=== PATIENT | male | born 1975 | race Caucasian/White ===

== ENCOUNTER 2023-08-26 00:21 | Inpatient (IN) | payer MEDICAID ==
[2023-08-26] VITALS (15 sets, daily range): BP systolic 95–133; PULSE 75–92; RESP 16–20; TEMP 97.5–98.1; O2SAT 90–100
[~2023-08-26] VITALS: Ht 172.7 cm; Wt 113.9 kg
[2023-08-26 01:29] LABS: ALBUMIN 2.6 g/dL (3.4-4.8); CALCIUM 7.7 mg/dL (8.4-11.0); CREATININE 0.75 mg/dL (0.55-1.30); POTASSIUM 4.1 mmol/L (3.5-5.1); TOTAL BILIRUBIN 3.4 mg/dL (0.0-1.0); TOTAL PROTEIN, SERUM 5.6 g/dL (6.4-8.3)
[2023-08-26 01:50] LABS: BASOPHILS # (AUTO) 0.1 K/uL (0.0-0.2); BASOPHILS % (AUTO) 0.8 % (0.0-2.0); EOSINOPHILS # (AUTO) 0.1 K/uL (0.0-0.4); EOSINOPHILS % (AUTO) 1.2 % (0.0-4.0); HEMATOCRIT 29.7 % (36-54); HEMOGLOBIN 10.9 g/dL (14.0-18.0); LYMPHOCYTES # (AUTO) 0.6 K/uL (1.0-5.5); LYMPHOCYTES % (AUTO) 8.1 % (20.5-51.5); MEAN CORPUSCULAR HEMOGLOBIN 35 pg (27-31); MEAN CORPUSCULAR HGB CONC 37 % (32-36); MEAN CORPUSCULAR VOLUME 95 fL (79.0-98.0); MONOCYTES # (AUTO) 1.6 K/uL (0.0-1.0); MONOCYTES % (AUTO) 21.5 % (1.7-9.3); NEUTROPHILS % (AUTO) 68.4 % (40.0-70.0); RED BLOOD CELL COUNT(AUTO) 3.13 MIL/uL (4.2-6.2); RED CELL DISTRIBUTION WIDTH 16.8 % (9.0-15.0); WHITE BLOOD COUNT (AUTO) 7.3 K/uL (4.8-10.8)
[2023-08-26 01:57] LABS: PLATELET COUNT (AUTO) 46 K/uL (130-430)
[2023-08-26] MEDS ORDERED: NS 500 ML IV ONE ×2 (02:00→05:00)
[2023-08-26 02:20] LABS: THYROID STIMULATING HORMONE 2.3 uIu/mL (0.34-4.82); URIC ACID 7.5 mg/dL (2.4-7.0)
[2023-08-26 02:38] LABS: BILIRUBIN,URINE NEGATIVE (NEGATIVE); BLOOD, URINE 3+ (NEGATIVE); CLARITY/URINE Clear (CLEAR); COLOR,URINE YELLOW (YELLOW); GLUCOSE,URINE NEGATIVE (NEGATIVE); KETONES,URINE NEGATIVE (NEGATIVE); LEUKOCYTE ESTERASE ,URINE 1+ (NEGATIVE); NITRITE, URINE NEGATIVE (NEGATIVE); PH,URINE 6.5 (5.0-8.0); PROTEIN URINE NEGATIVE (NEGATIVE)
[2023-08-26] MEDS ORDERED: MAGNESIUM SULFATE 50 ML IV ONE (03:00)
[2023-08-26 03:15] LABS: BACTERIA,URINE None Seen /HPF (None Seen)
[2023-08-26 04:24] LABS: CALCIUM 7.4 mg/dL (8.4-11.0); CREATININE 0.68 mg/dL (0.55-1.30)
[2023-08-26] MEDS ORDERED: FUROSEMIDE 40 MG/4 ML VIAL IVP ONE (05:00)
[2023-08-26] MEDS ORDERED: RIFA550T5 PO ×2 (06:05→06:11)
[2023-08-26] MEDS ORDERED: FLUC100T41 PO (06:05)
[2023-08-26] MEDS ORDERED: FURO40TA5 PO (06:05)
[2023-08-26] MEDS ORDERED: LEVE1000 PO (06:05)
[2023-08-26] MEDS ORDERED: LACO100T4 PO (06:05)
[2023-08-26] MEDS ORDERED: QUET25TA36 PO (06:05)
[2023-08-26] MEDS ORDERED: MIDO5TAB4 PO (06:11)
[2023-08-26] MEDS ORDERED: PRO40 PO (06:11)
[2023-08-26] MEDS ORDERED: SPIR50TA5 PO (06:11)
[2023-08-26] MEDS ORDERED: THIA50TA10 PO (06:11)
[2023-08-26] MEDS ORDERED: PROP10TA10 PO (06:11)
[2023-08-26] MEDS ORDERED: ONDA-8 TL (06:11)
[2023-08-26] MEDS ORDERED: MUPIROCIN 2% TOPICAL OINTMENT 22 GM NS PRN (07:45)
[2023-08-26] MEDS ORDERED: MAGNESIUM SULFATE 50 ML IV PRN (07:45)
[2023-08-26] MEDS ORDERED: POTASSIUM CHLORIDE 20 MEQ TAB.PRT.SR PO PRN (07:45)
[2023-08-26] MEDS ORDERED: MORPHINE 2 MG/ML INJ. SYRINGE IVP PRN ×2 (07:45)
[2023-08-26] MEDS ORDERED: DOCUSATE SODIUM 100 MG CAPSULE PO PRN (07:45)
[2023-08-26] MEDS ORDERED: ONDANSETRON HCL 4 MG/2 ML VIAL IVP PRN (07:45)
[2023-08-26] MEDS ORDERED: LORazepam 2 MG/ML VIAL IVP PRN (07:45)
[2023-08-26] MEDS ORDERED: ACETAMINOPHEN 325 MG TABLET PO PRN ×2 (07:45)
[2023-08-26] MEDS ORDERED: DEXTROSE 50% JECT 50 ML DISP.SYRIN IVP PRN (07:45)
[2023-08-26] MEDS ORDERED: NALOXONE HCL 0.4 MG/ML AMP (NARCAN) IVP PRN ×2 (07:45)
[2023-08-26] MEDS ORDERED: INSULIN Lispro 100 UNITS/ML, 3 ML VIAL (humaLOG) ONE ×2 (07:52→08:00)
[2023-08-26] MEDS: INSULIN LISPRO SLIDING SCALE 100 UNITS/ML, 3 ML VIAL (humaLOG) SUBCUT PRN (07:57)
[2023-08-26] MEDS: NEPHROVITE, (FOLIC ACID/VITAMIN B COMP W-C 1 TAB) PO SCH (09:50)
[2023-08-26] MEDS ORDERED: levETIRAcetam 500 MG TABLET PO ONE (10:00)
[2023-08-26] MEDS ORDERED: SODIUM CHLORIDE 3% *HI-ALERT* 250 ML IV ONE (10:00)
[2023-08-26] MEDS ORDERED: RIFAXIMIN 550 MG TABLET PO ONE (10:15)
[2023-08-26] MEDS ORDERED: LACOSAMIDE 100 MG TABLET PO ONE (10:15)
[2023-08-26 14:40] LABS: CALCIUM 7.6 mg/dL (8.4-11.0); CREATININE 0.61 mg/dL (0.55-1.30); POTASSIUM 4.3 mmol/L (3.5-5.1)
[2023-08-26] MEDS: MIDODRINE HCL 5 MG TABLET (PROAMATINE) PO SCH ×2 (14:49→21:24)
[2023-08-26] MEDS ORDERED: NOREPINEPHRINE BITARTRATE 4 MG in D5W 246 ML IV PRN (16:30)
[2023-08-26 16:43] LABS: INR 1.4 (0.80-1.20); PROTHROMBIN TIME 14.5 SECS (9.5-12.5)
[2023-08-26 17:28] LABS: ALBUMIN 2.6 g/dL (3.4-4.8); CALCIUM 7.7 mg/dL (8.4-11.0); CREATININE 0.61 mg/dL (0.55-1.30); POTASSIUM 4.1 mmol/L (3.5-5.1); TOTAL BILIRUBIN 4.1 mg/dL (0.0-1.0); TOTAL PROTEIN, SERUM 5.6 g/dL (6.4-8.3)
[2023-08-26] MEDS: MEROPENEM 500 MG in NS 50 ML IV SCH (18:08)
[2023-08-26 20:35] LABS: ALBUMIN 2.5 g/dL (3.4-4.8); CALCIUM 7.5 mg/dL (8.4-11.0); CREATININE 0.79 mg/dL (0.55-1.30); POTASSIUM 4.2 mmol/L (3.5-5.1); TOTAL BILIRUBIN 3.9 mg/dL (0.0-1.0); TOTAL PROTEIN, SERUM 5.6 g/dL (6.4-8.3)
[2023-08-26] MEDS ORDERED: QUEtiapine FUMARATE 25 MG TABLET PO SCH (21:00)
[2023-08-26] MEDS: LACTULOSE 20 GM/30 ML UDC PO SCH (21:23)
[2023-08-26] MEDS: levETIRAcetam 500 MG TABLET PO SCH (21:24)
[2023-08-26] MEDS: RIFAXIMIN 550 MG TABLET PO SCH (21:24)
[2023-08-27] VITALS (13 sets, daily range): BP systolic 101–133; PULSE 80–94; RESP 17–32; TEMP 97.8–98.8; O2SAT 92–96
[2023-08-27] MEDS: MEROPENEM 500 MG in NS 50 ML IV SCH ×3 (02:00→17:54)
[2023-08-27 06:05] LABS: BASOPHILS % (AUTO) 0.6 % (0.0-2.0); EOSINOPHILS # (AUTO) 0.1 K/uL (0.0-0.4); EOSINOPHILS % (AUTO) 1.4 % (0.0-4.0); HEMOGLOBIN 10.6 g/dL (14.0-18.0); LYMPHOCYTES # (AUTO) 0.6 K/uL (1.0-5.5); LYMPHOCYTES % (AUTO) 10.6 % (20.5-51.5); MEAN CORPUSCULAR HEMOGLOBIN 34 pg (27-31); MEAN CORPUSCULAR HGB CONC 35 % (32-36); MEAN CORPUSCULAR VOLUME 97 fL (79.0-98.0); MONOCYTES # (AUTO) 1.4 K/uL (0.0-1.0); MONOCYTES % (AUTO) 22.9 % (1.7-9.3); NEUTROPHILS # (AUTO) 3.8 K/uL (1.8-7.7); NEUTROPHILS % (AUTO) 64.5 % (40.0-70.0); RED BLOOD CELL COUNT(AUTO) 3.08 MIL/uL (4.2-6.2); RED CELL DISTRIBUTION WIDTH 17.4 % (9.0-15.0); WHITE BLOOD COUNT (AUTO) 5.9 K/uL (4.8-10.8)
[2023-08-27 07:10] LABS: CALCIUM 7.9 mg/dL (8.4-11.0); CREATININE 0.69 mg/dL (0.55-1.30)
[2023-08-27] MEDS: RIFAXIMIN 550 MG TABLET PO SCH ×2 (08:52→21:25)
[2023-08-27] MEDS: MIDODRINE HCL 5 MG TABLET (PROAMATINE) PO SCH ×3 (08:52→21:25)
[2023-08-27] MEDS: levETIRAcetam 500 MG TABLET PO SCH ×2 (08:52→21:25)
[2023-08-27] MEDS: NEPHROVITE, (FOLIC ACID/VITAMIN B COMP W-C 1 TAB) PO SCH (08:52)
[2023-08-27] MEDS: LACOSAMIDE 100 MG TABLET PO SCH (08:53)
[2023-08-27] MEDS: LACTULOSE 20 GM/30 ML UDC PO SCH ×2 (09:00→21:25)
[2023-08-27] MEDS ORDERED: PROPRANOLOL HCL 10 MG TABLET (INDERAL) PO SCH (09:00)
[2023-08-27] MEDS ORDERED: SPIRONOLACTONE 50 MG TABLET (ALDACTONE) PO SCH (09:00)
[2023-08-27] MEDS: INSULIN LISPRO SLIDING SCALE 100 UNITS/ML, 3 ML VIAL (humaLOG) SUBCUT PRN ×2 (12:17→21:35)
[2023-08-27 12:39] LABS: PLATELET COUNT (AUTO) 45 K/uL (130-430)
[2023-08-28] MEDS: MEROPENEM 500 MG in NS 50 ML IV SCH (01:35)
[2023-08-28 02:11] VITALS: BP_SYST 113; PULSE 100; RESP 19; TEMP 98.6; O2SAT 98
[2023-08-28 07:45] LABS: ALBUMIN 2.6 g/dL (3.4-4.8); BILIRUBIN,DIRECT 2.4 mg/dL (0.0-0.3); CALCIUM 7.9 mg/dL (8.4-11.0); CREATININE 0.61 mg/dL (0.55-1.30); POTASSIUM 4.3 mmol/L (3.5-5.1); TOTAL BILIRUBIN 4.6 mg/dL (0.0-1.0); TOTAL PROTEIN, SERUM 5.6 g/dL (6.4-8.3)
[2023-08-28 07:55] LABS: BASOPHILS % (AUTO) 0.3 % (0.0-2.0); EOSINOPHILS # (AUTO) 0.1 K/uL (0.0-0.4); HEMATOCRIT 29.7 % (36-54); HEMOGLOBIN 10.5 g/dL (14.0-18.0); LYMPHOCYTES # (AUTO) 0.6 K/uL (1.0-5.5); LYMPHOCYTES % (AUTO) 10.7 % (20.5-51.5); MEAN CORPUSCULAR HEMOGLOBIN 35 pg (27-31); MEAN CORPUSCULAR HGB CONC 35 % (32-36); MEAN CORPUSCULAR VOLUME 98 fL (79.0-98.0); MONOCYTES # (AUTO) 1.2 K/uL (0.0-1.0); MONOCYTES % (AUTO) 22.1 % (1.7-9.3); NEUTROPHILS # (AUTO) 3.6 K/uL (1.8-7.7); RED BLOOD CELL COUNT(AUTO) 3.03 MIL/uL (4.2-6.2); RED CELL DISTRIBUTION WIDTH 16.7 % (9.0-15.0); WHITE BLOOD COUNT (AUTO) 5.5 K/uL (4.8-10.8)
[2023-08-28 08:26] VITALS: BP_SYST 114; PULSE 105; RESP 20; TEMP 97.4; O2SAT 95
[2023-08-28 08:47] LABS: PLATELET COUNT (AUTO) 43 K/uL (130-430)
[2023-08-28] MEDS: levETIRAcetam 500 MG TABLET PO SCH (09:16)
[2023-08-28] MEDS: LACTULOSE 20 GM/30 ML UDC PO SCH (09:16)
[2023-08-28] MEDS: NEPHROVITE, (FOLIC ACID/VITAMIN B COMP W-C 1 TAB) PO SCH (09:17)
[2023-08-28] MEDS: RIFAXIMIN 550 MG TABLET PO SCH (09:17)
[2023-08-28] MEDS: MIDODRINE HCL 5 MG TABLET (PROAMATINE) PO SCH (09:19)
[2023-08-28] MEDS ORDERED: levoFLOXacin 500 MG TABLET PO SCH (10:00)
[2023-08-28] MEDS: LACOSAMIDE 100 MG TABLET PO SCH (10:45)
[2023-08-28 10:49] LABS: NEUTROPHILS % (AUTO) 65.9 % (40.0-70.0)
[2023-08-28] MEDS: INSULIN LISPRO SLIDING SCALE 100 UNITS/ML, 3 ML VIAL (humaLOG) SUBCUT PRN (12:30)
[2023-08-28 14:56] VITALS: BP_SYST 116; PULSE 88; RESP 18; TEMP 97.8; O2SAT 95
== END 2023-08-29 17:35 | DRG 426 ==
LOC: SED 00:21 → STU 05:57 → SIC 13:38 → STU 08-27 16:46
PROVIDERS: ADMIT Family Medicine; ATTEND Family Medicine
PROC: 02HV33Z Insertion of Infusion Device into Superior Vena Cava, Percutaneous Approach (ICD-10-PCS; principal; 2023-08-27)
PROC: B548ZZA Ultrasonography of Superior Vena Cava, Guidance (ICD-10-PCS; 2023-08-27)
DX: E87.1 Hypo-osmolality and hyponatremia (principal); D61.818 Other pancytopenia; K76.82 Hepatic encephalopathy; J18.9 Pneumonia, unspecified organism; K76.6 Portal hypertension; E44.0 Moderate protein-calorie malnutrition; K70.30 Alcoholic cirrhosis of liver without ascites; Z20.822 Contact with and (suspected) exposure to COVID-19; J45.909 Unspecified asthma, uncomplicated; G40.909 Epilepsy, unspecified, not intractable, without status epilepticus; Z87.01 Personal history of pneumonia (recurrent); Z88.0 Allergy status to penicillin; Z79.899 Other long term (current) drug therapy; Z68.38 Body mass index [BMI] 38.0-38.9, adult
CPT/HCPCS: 36415; 70450-TC; 71045; 76376; 76700-TC; 76705; 80048; 80053; 80076; 81000; 82140; 82962; 83735; 83935; 84302; 84443; 84540; 84550; 84560; 85025; 85610-TC; 85730-TC; 87040; 87081; 96361; 96365; 96366; 96375; 99291; G0378; J1940; J2185; J3475; J3490; J7060

== ENCOUNTER 2023-09-10 19:30 | Inpatient (IN) | payer MEDICAID ==
[~2023-09-10] VITALS: Ht 175.3 cm; Wt 104.3 kg
[~2023-09-10 19:30] MED LIST: FLUC100T41 PO; FURO40TA5 PO; LACO100T4 PO; LEVE1000 PO; MIDO5TAB4 PO; ONDA-8 TL; PRO40 PO; PROP10TA10 PO; QUET25TA36 PO; RIFA550T5 PO; SPIR50TA5 PO; THIA50TA10 PO
[2023-09-10 19:37] VITALS: BP_SYST 92; PULSE 88; RESP 20; TEMP 98.1; O2SAT 97
[2023-09-10 21:02] LABS: BASOPHILS # (AUTO) 0.1 K/uL (0.0-0.2); BASOPHILS % (AUTO) 0.3 % (0.0-2.0); EOSINOPHILS # (AUTO) 0.1 K/uL (0.0-0.4); EOSINOPHILS % (AUTO) 0.4 % (0.0-4.0); HEMATOCRIT 35.7 % (36-54); HEMOGLOBIN 12.2 g/dL (14.0-18.0); LYMPHOCYTES # (AUTO) 0.9 K/uL (1.0-5.5); LYMPHOCYTES % (AUTO) 4.5 % (20.5-51.5); MEAN CORPUSCULAR HEMOGLOBIN 33 pg (27-31); MEAN CORPUSCULAR HGB CONC 34 % (32-36); MEAN CORPUSCULAR VOLUME 97 fL (79.0-98.0); MONOCYTES # (AUTO) 1.8 K/uL (0.0-1.0); MONOCYTES % (AUTO) 9.1 % (1.7-9.3); NEUTROPHILS % (AUTO) 85.7 % (40.0-70.0); RED BLOOD CELL COUNT(AUTO) 3.68 MIL/uL (4.2-6.2); WHITE BLOOD COUNT (AUTO) 19.8 K/uL (4.8-10.8)
[2023-09-10 21:13] LABS: PLATELET COUNT (AUTO) 60 K/uL (130-430)
[2023-09-10 21:15] LABS: INR 1.7 (0.80-1.20); PROTHROMBIN TIME 16.8 SECS (9.5-12.5)
[2023-09-10 21:16] LABS: ANION GAP 9 (5-15); CALCIUM 8.6 mg/dL (8.4-11.0); CARBON DIOXIDE 28 mmol/L (23-29); CHLORIDE 95 mmol/L (98-107); CREATININE 0.85 mg/dL (0.55-1.30); GFR AFRICAN AMERICAN 124 mL/min (>90); GLUCOSE 130 mg/dL (74-106); POTASSIUM 3.7 mmol/L (3.5-5.1); SODIUM SERUM 132 mmol/L (136-145); UREA NITROGEN, BLOOD 23 mg/dL (8-21)
[2023-09-10 21:21] LABS: ALANINE AMINOTRANSFERASE 11 U/L (12-78); ALBUMIN 2.6 g/dL (3.4-4.8); ASPARTATE AMINOTRANSFERASE 21 U/L (10-37); TOTAL BILIRUBIN 5.8 mg/dL (0.0-1.0); TOTAL PROTEIN, SERUM 5.8 g/dL (6.4-8.3)
[2023-09-10 21:27] LABS: GFR NON AFRICAN-AMERICAN 102 mL/min (>90)
[2023-09-10 21:38] LABS: BILIRUBIN,URINE 1+ (NEGATIVE); BLOOD, URINE NEGATIVE (NEGATIVE); CLARITY/URINE CLEAR (CLEAR); GLUCOSE,URINE NEGATIVE (NEGATIVE); KETONES,URINE NEGATIVE (NEGATIVE); LEUKOCYTE ESTERASE ,URINE TRACE (NEGATIVE); NITRITE, URINE NEGATIVE (NEGATIVE); PH,URINE 5.5 (5.0-8.0); PROTEIN URINE NEGATIVE (NEGATIVE)
[2023-09-10 21:44] LABS: COLOR,URINE AMBER (YELLOW)
[2023-09-10] MEDS ORDERED: ONDANSETRON HCL 4 MG/2 ML VIAL IVP ONE (21:45)
[2023-09-10 21:46] LABS: BACTERIA,URINE FEW /HPF (None Seen); RBC,URINE NONE SEEN /HPF (0-3)
[2023-09-10 21:47] LABS: MUCUS,URINE None Seen /LPF (None Seen)
[2023-09-10] MEDS ORDERED: cefTRIAXone 2 GM VIAL ONE (21:48)
[2023-09-10] MEDS ORDERED: LACTULOSE 20 GM/30 ML UDC ONE (21:57)
[2023-09-10] MEDS ORDERED: LACTULOSE 20 GM/30 ML UDC PO ONE (22:00)
[2023-09-10] MEDS: LR 1,000 ML IV SCH (23:42)
[2023-09-11 00:05] VITALS: BP_SYST 109; PULSE 87; RESP 19; TEMP 99
[2023-09-11] MEDS: LR 1,000 ML IV SCH (02:46)
[2023-09-11 08:37] VITALS: BP_SYST 109; PULSE 97; RESP 18; TEMP 96.8; O2SAT 99
[2023-09-11] MEDS ORDERED: THIAMINE HCL PO SCH (10:15)
[2023-09-11] MEDS ORDERED: ONDANSETRON 4 MG ODT TAB TL PRN (10:15)
[2023-09-11] MEDS ORDERED: PHYTONADIONE Non-Formulary 5 MG TABLET PO ONE (10:30)
[2023-09-11] MEDS ORDERED: LACOSAMIDE 100 MG TABLET PO ONE (11:00)
[2023-09-11] MEDS ORDERED: FLUCONAZOLE 100 MG TABLET (DIFLUCAN) PO ONE (11:00)
[2023-09-11] MEDS ORDERED: THIAMINE HCL 100 MG TABLET PO ONE (11:15)
[2023-09-11] MEDS ORDERED: levETIRAcetam 500 MG TABLET PO ONE (11:15)
[2023-09-11] MEDS ORDERED: MIDODRINE HCL 5 MG TABLET (PROAMATINE) PO ONE (11:15)
[2023-09-11] MEDS ORDERED: PANTOPRAZOLE SODIUM 40 MG TAB PO ONE (11:15)
[2023-09-11] MEDS ORDERED: SPIRONOLACTONE 50 MG TABLET (ALDACTONE) PO ONE (11:15)
[2023-09-11] MEDS ORDERED: PROPRANOLOL HCL 10 MG TABLET (INDERAL) PO ONE (11:15)
[2023-09-11] MEDS ORDERED: RIFAXIMIN 550 MG TABLET PO ONE (11:15)
[2023-09-11 11:30] VITALS: BP_SYST 105; PULSE 89; RESP 17; TEMP 97.9; O2SAT 100
[2023-09-11] MEDS: cefTRIAXone 1 GM in D5W 50 ML IV SCH (12:00)
[2023-09-11] MEDS ORDERED: PHYTONADIONE (Vitamin K) Oral Solution PO ONE (12:00)
[2023-09-11] MEDS: MIDODRINE HCL 5 MG TABLET (PROAMATINE) PO SCH ×2 (15:58→21:24)
[2023-09-11 17:02] VITALS: BP_SYST 108; PULSE 84; RESP 17; TEMP 98; O2SAT 100
[2023-09-11] MEDS ORDERED: VANCOMYCIN HCL ORAL SOLUTION 125 MG/5 ML, 150 ML PO ONE (18:00)
[2023-09-11] MEDS: QUEtiapine FUMARATE 25 MG TABLET PO SCH (18:28)
[2023-09-11 20:00] VITALS: BP_SYST 115; PULSE 88; RESP 16; TEMP 97; O2SAT 97
[2023-09-11] MEDS: LACOSAMIDE 100 MG TABLET PO SCH (21:00)
[2023-09-11] MEDS ORDERED: VANCOMYCIN HCL ORAL SOLUTION 125 MG/5 ML, 150 ML PO SCH (21:00)
[2023-09-11] MEDS: SPIRONOLACTONE 50 MG TABLET (ALDACTONE) PO SCH (21:25)
[2023-09-11] MEDS: PROPRANOLOL HCL 10 MG TABLET (INDERAL) PO SCH (21:25)
[2023-09-11] MEDS: levETIRAcetam 500 MG TABLET PO SCH (21:26)
[2023-09-11] MEDS: RIFAXIMIN 550 MG TABLET PO SCH (21:27)
[2023-09-11] MEDS: VANCOMYCIN HCL ORAL SOLUTION 125 MG/5 ML, 150 ML PO SCH (21:44)
[2023-09-12 00:24] VITALS: BP_SYST 102; PULSE 80; RESP 19; TEMP 96.3; O2SAT 98
[2023-09-12 05:49] LABS: BASOPHILS # (AUTO) 0.1 K/uL (0.0-0.2); BASOPHILS % (AUTO) 0.5 % (0.0-2.0); EOSINOPHILS # (AUTO) 0.2 K/uL (0.0-0.4); EOSINOPHILS % (AUTO) 1.3 % (0.0-4.0); HEMATOCRIT 36.9 % (36-54); HEMOGLOBIN 12.6 g/dL (14.0-18.0); LYMPHOCYTES % (AUTO) 8.4 % (20.5-51.5); MEAN CORPUSCULAR HEMOGLOBIN 33 pg (27-31); MEAN CORPUSCULAR HGB CONC 34 % (32-36); MEAN CORPUSCULAR VOLUME 97 fL (79.0-98.0); MONOCYTES # (AUTO) 1.5 K/uL (0.0-1.0); MONOCYTES % (AUTO) 12.6 % (1.7-9.3); NEUTROPHILS # (AUTO) 9.3 K/uL (1.8-7.7); NEUTROPHILS % (AUTO) 77.2 % (40.0-70.0); PLATELET COUNT (AUTO) 63 K/uL (130-430); RED BLOOD CELL COUNT(AUTO) 3.81 MIL/uL (4.2-6.2)
[2023-09-12 06:16] LABS: INR 1.6 (0.80-1.20); PROTHROMBIN TIME 16.3 SECS (9.5-12.5)
[2023-09-12 06:29] LABS: ALBUMIN 2.5 g/dL (3.4-4.8); CALCIUM 8.5 mg/dL (8.4-11.0); CREATININE 0.81 mg/dL (0.55-1.30); POTASSIUM 3.6 mmol/L (3.5-5.1); TOTAL BILIRUBIN 5.3 mg/dL (0.0-1.0); TOTAL PROTEIN, SERUM 5.6 g/dL (6.4-8.3)
[2023-09-12] MEDS: LR 1,000 ML IV SCH (07:10)
[2023-09-12 08:31] VITALS: BP_SYST 109; PULSE 73; RESP 18; TEMP 96.5; O2SAT 98
[2023-09-12] MEDS: SPIRONOLACTONE 50 MG TABLET (ALDACTONE) PO SCH ×2 (09:00→21:11)
[2023-09-12] MEDS: PROPRANOLOL HCL 10 MG TABLET (INDERAL) PO SCH ×2 (09:00→21:14)
[2023-09-12] MEDS: RIFAXIMIN 550 MG TABLET PO SCH ×2 (10:27→21:16)
[2023-09-12] MEDS: FLUCONAZOLE 100 MG TABLET (DIFLUCAN) PO SCH (10:27)
[2023-09-12] MEDS: LACOSAMIDE 100 MG TABLET PO SCH ×2 (10:28→21:12)
[2023-09-12] MEDS: PANTOPRAZOLE SODIUM 40 MG TAB PO SCH (10:28)
[2023-09-12] MEDS: THIAMINE HCL 100 MG TABLET PO SCH (10:29)
[2023-09-12] MEDS: levETIRAcetam 500 MG TABLET PO SCH ×2 (10:30→21:12)
[2023-09-12] MEDS: MIDODRINE HCL 5 MG TABLET (PROAMATINE) PO SCH ×3 (10:30→21:12)
[2023-09-12] MEDS: cefTRIAXone 1 GM in D5W 50 ML IV SCH (11:21)
[2023-09-12] MEDS: VANCOMYCIN HCL ORAL SOLUTION 125 MG/5 ML, 150 ML PO SCH ×4 (11:21→21:13)
[2023-09-12 12:00] VITALS: BP_SYST 109; PULSE 78; RESP 15; TEMP 97; O2SAT 97
[2023-09-12] MEDS ORDERED: LACTULOSE 20 GM/30 ML UDC RC ONE ×2 (12:15→13:00)
[2023-09-12 16:00] VITALS: BP_SYST 99; PULSE 79; RESP 17; TEMP 96.3; O2SAT 96
[2023-09-12] MEDS: QUEtiapine FUMARATE 25 MG TABLET PO SCH (17:18)
[2023-09-12 20:00] VITALS: BP_SYST 102; PULSE 94; RESP 16; TEMP 97; O2SAT 94
[2023-09-13] MEDS: LR 1,000 ML IV SCH (00:36)
[2023-09-13 01:16] VITALS: BP_SYST 106; PULSE 85; RESP 19; TEMP 98.6; O2SAT 97
[2023-09-13 05:08] LABS: BASOPHILS % (AUTO) 0.2 % (0.0-2.0); EOSINOPHILS # (AUTO) 0.1 K/uL (0.0-0.4); HEMATOCRIT 32.8 % (36-54); HEMOGLOBIN 11.1 g/dL (14.0-18.0); LYMPHOCYTES # (AUTO) 0.8 K/uL (1.0-5.5); LYMPHOCYTES % (AUTO) 6.7 % (20.5-51.5); MEAN CORPUSCULAR HEMOGLOBIN 33 pg (27-31); MEAN CORPUSCULAR HGB CONC 34 % (32-36); MEAN CORPUSCULAR VOLUME 98 fL (79.0-98.0); MONOCYTES # (AUTO) 1.3 K/uL (0.0-1.0); MONOCYTES % (AUTO) 10.7 % (1.7-9.3); NEUTROPHILS # (AUTO) 9.8 K/uL (1.8-7.7); NEUTROPHILS % (AUTO) 81.4 % (40.0-70.0); RED BLOOD CELL COUNT(AUTO) 3.36 MIL/uL (4.2-6.2); RED CELL DISTRIBUTION WIDTH 16.4 % (9.0-15.0); WHITE BLOOD COUNT (AUTO) 12.1 K/uL (4.8-10.8)
[2023-09-13 05:11] LABS: INR 1.6 (0.80-1.20); PROTHROMBIN TIME 16.4 SECS (9.5-12.5)
[2023-09-13 05:32] LABS: ALBUMIN 2.1 g/dL (3.4-4.8); CALCIUM 8.2 mg/dL (8.4-11.0); CREATININE 0.86 mg/dL (0.55-1.30); PLATELET COUNT (AUTO) 44 K/uL (130-430); POTASSIUM 3.6 mmol/L (3.5-5.1); TOTAL BILIRUBIN 4.8 mg/dL (0.0-1.0)
[2023-09-13 07:30] VITALS: BP_SYST 109; PULSE 85; RESP 19; TEMP 97.3; O2SAT 94
[2023-09-13] MEDS: levETIRAcetam 500 MG TABLET PO SCH ×2 (09:46→21:56)
[2023-09-13] MEDS: RIFAXIMIN 550 MG TABLET PO SCH ×2 (09:46→21:56)
[2023-09-13] MEDS: FLUCONAZOLE 100 MG TABLET (DIFLUCAN) PO SCH (09:46)
[2023-09-13] MEDS: PANTOPRAZOLE SODIUM 40 MG TAB PO SCH (09:46)
[2023-09-13] MEDS: SPIRONOLACTONE 50 MG TABLET (ALDACTONE) PO SCH ×2 (09:47→21:57)
[2023-09-13] MEDS: PROPRANOLOL HCL 10 MG TABLET (INDERAL) PO SCH ×2 (09:48→22:02)
[2023-09-13] MEDS: MIDODRINE HCL 5 MG TABLET (PROAMATINE) PO SCH ×3 (09:48→21:58)
[2023-09-13] MEDS: LACOSAMIDE 100 MG TABLET PO SCH ×2 (09:49→21:56)
[2023-09-13] MEDS: THIAMINE HCL 100 MG TABLET PO SCH (09:49)
[2023-09-13] MEDS: VANCOMYCIN HCL ORAL SOLUTION 125 MG/5 ML, 150 ML PO SCH ×4 (10:04→21:56)
[2023-09-13 11:30] VITALS: BP_SYST 98; PULSE 86; RESP 19; TEMP 98.3; O2SAT 94
[2023-09-13] MEDS: cefTRIAXone 1 GM in D5W 50 ML IV SCH (12:28)
[2023-09-13 16:00] VITALS: BP_SYST 102; PULSE 85; RESP 20; TEMP 97.3; O2SAT 95
[2023-09-13] MEDS ORDERED: FUROSEMIDE 40 MG TABLET PO ONE (17:30)
[2023-09-13 20:05] VITALS: BP_SYST 102; PULSE 90; RESP 19; TEMP 97.3; O2SAT 97
[2023-09-13] MEDS: LACTULOSE 20 GM/30 ML UDC PO SCH (21:56)
[2023-09-14 01:12] VITALS: BP_SYST 102; PULSE 88; RESP 16; TEMP 98.6; O2SAT 100
[2023-09-14 06:04] LABS: BASOPHILS % (AUTO) 0.2 % (0.0-2.0); EOSINOPHILS # (AUTO) 0.1 K/uL (0.0-0.4); EOSINOPHILS % (AUTO) 0.7 % (0.0-4.0); HEMATOCRIT 31.7 % (36-54); HEMOGLOBIN 10.9 g/dL (14.0-18.0); LYMPHOCYTES % (AUTO) 5.6 % (20.5-51.5); MEAN CORPUSCULAR HEMOGLOBIN 34 pg (27-31); MEAN CORPUSCULAR HGB CONC 35 % (32-36); MEAN CORPUSCULAR VOLUME 98 fL (79.0-98.0); MONOCYTES # (AUTO) 1.7 K/uL (0.0-1.0); MONOCYTES % (AUTO) 9.9 % (1.7-9.3); NEUTROPHILS # (AUTO) 14.2 K/uL (1.8-7.7); NEUTROPHILS % (AUTO) 83.6 % (40.0-70.0); PLATELET COUNT (AUTO) 53 K/uL (130-430); RED BLOOD CELL COUNT(AUTO) 3.25 MIL/uL (4.2-6.2); RED CELL DISTRIBUTION WIDTH 16.3 % (9.0-15.0)
[2023-09-14 06:17] LABS: ALBUMIN 2.2 g/dL (3.4-4.8); CALCIUM 7.9 mg/dL (8.4-11.0); CREATININE 0.71 mg/dL (0.55-1.30); POTASSIUM 3.2 mmol/L (3.5-5.1); TOTAL BILIRUBIN 4.2 mg/dL (0.0-1.0); TOTAL PROTEIN, SERUM 4.8 g/dL (6.4-8.3)
[2023-09-14 08:30] VITALS: BP_SYST 112; PULSE 80; RESP 17; TEMP 98.1; O2SAT 97
[2023-09-14] MEDS: RIFAXIMIN 550 MG TABLET PO SCH ×2 (09:00→21:31)
[2023-09-14] MEDS: FUROSEMIDE 40 MG TABLET PO SCH (11:30)
[2023-09-14] MEDS: SPIRONOLACTONE 50 MG TABLET (ALDACTONE) PO SCH ×2 (11:31→21:00)
[2023-09-14] MEDS: LACOSAMIDE 100 MG TABLET PO SCH ×2 (11:31→21:31)
[2023-09-14] MEDS: PANTOPRAZOLE SODIUM 40 MG TAB PO SCH (11:31)
[2023-09-14] MEDS: PROPRANOLOL HCL 10 MG TABLET (INDERAL) PO SCH ×3 (11:31→21:00)
[2023-09-14] MEDS: levETIRAcetam 500 MG TABLET PO SCH ×2 (11:31→21:32)
[2023-09-14] MEDS: MIDODRINE HCL 5 MG TABLET (PROAMATINE) PO SCH ×3 (11:32→21:32)
[2023-09-14] MEDS: LACTULOSE 20 GM/30 ML UDC PO SCH ×4 (11:32→21:31)
[2023-09-14] MEDS: THIAMINE HCL 100 MG TABLET PO SCH (11:32)
[2023-09-14] MEDS: VANCOMYCIN HCL ORAL SOLUTION 125 MG/5 ML, 150 ML PO SCH ×4 (11:38→21:32)
[2023-09-14] MEDS: LR 1,000 ML IV SCH (11:49)
[2023-09-14] MEDS: cefTRIAXone 1 GM in D5W 50 ML IV SCH (12:05)
[2023-09-14 12:30] VITALS: BP_SYST 114; PULSE 74; RESP 18; TEMP 97.1; O2SAT 98
[2023-09-14] MEDS ORDERED: POTASSIUM CHLORIDE 20 MEQ/PKT PACKET PO ONE (16:00)
[2023-09-14 20:50] VITALS: BP_SYST 92; PULSE 87; RESP 18; TEMP 98.6; O2SAT 99
[2023-09-15 00:01] VITALS: BP_SYST 101; PULSE 80; RESP 18; TEMP 97.3; O2SAT 98
[2023-09-15 08:30] VITALS: O2SAT 98
[2023-09-15] MEDS ORDERED: POTASSIUM CHLORIDE 20 MEQ/PKT PACKET PO SCH (09:00)
[2023-09-15 09:24] LABS: BASOPHILS % (AUTO) 0.3 % (0.0-2.0); EOSINOPHILS # (AUTO) 0.2 K/uL (0.0-0.4); EOSINOPHILS % (AUTO) 1.4 % (0.0-4.0); HEMATOCRIT 33.4 % (36-54); HEMOGLOBIN 11.5 g/dL (14.0-18.0); LYMPHOCYTES # (AUTO) 0.9 K/uL (1.0-5.5); LYMPHOCYTES % (AUTO) 7.4 % (20.5-51.5); MEAN CORPUSCULAR HEMOGLOBIN 33 pg (27-31); MEAN CORPUSCULAR HGB CONC 35 % (32-36); MEAN CORPUSCULAR VOLUME 97 fL (79.0-98.0); MONOCYTES # (AUTO) 1.2 K/uL (0.0-1.0); MONOCYTES % (AUTO) 10.2 % (1.7-9.3); NEUTROPHILS # (AUTO) 9.7 K/uL (1.8-7.7); NEUTROPHILS % (AUTO) 80.7 % (40.0-70.0); PLATELET COUNT (AUTO) 59 K/uL (130-430); RED BLOOD CELL COUNT(AUTO) 3.46 MIL/uL (4.2-6.2); RED CELL DISTRIBUTION WIDTH 16.3 % (9.0-15.0)
[2023-09-15 09:49] LABS: ALBUMIN 2.3 g/dL (3.4-4.8); CREATININE 0.73 mg/dL (0.55-1.30); TOTAL BILIRUBIN 3.8 mg/dL (0.0-1.0); TOTAL PROTEIN, SERUM 5.1 g/dL (6.4-8.3)
[2023-09-15] MEDS: VANCOMYCIN HCL ORAL SOLUTION 125 MG/5 ML, 150 ML PO SCH (10:44)
[2023-09-15] MEDS: levETIRAcetam 500 MG TABLET PO SCH (10:44)
[2023-09-15] MEDS: RIFAXIMIN 550 MG TABLET PO SCH (10:44)
[2023-09-15] MEDS: THIAMINE HCL 100 MG TABLET PO SCH (10:44)
[2023-09-15] MEDS: PANTOPRAZOLE SODIUM 40 MG TAB PO SCH (10:44)
[2023-09-15] MEDS: FUROSEMIDE 40 MG TABLET PO SCH (10:47)
[2023-09-15] MEDS: SPIRONOLACTONE 50 MG TABLET (ALDACTONE) PO SCH (10:47)
[2023-09-15] MEDS: MIDODRINE HCL 5 MG TABLET (PROAMATINE) PO SCH ×2 (10:48→15:00)
[2023-09-15] MEDS: LACOSAMIDE 100 MG TABLET PO SCH (10:48)
[2023-09-15] MEDS: LACTULOSE 20 GM/30 ML UDC PO SCH ×3 (10:48→17:00)
[2023-09-15] MEDS: PROPRANOLOL HCL 10 MG TABLET (INDERAL) PO SCH ×2 (10:48→15:00)
[2023-09-15] MEDS: LR 1,000 ML IV SCH (10:49)
[2023-09-15] MEDS: cefTRIAXone 1 GM in D5W 50 ML IV SCH (11:03)
[2023-09-15 12:00] VITALS: BP_SYST 99; PULSE 82; RESP 17; TEMP 97.8; O2SAT 97
[2023-09-15] MEDS ORDERED: LACTOBACILLUS RHAMNOSUS GG 1 CAP CAPSULE PO ONE (15:00)
[2023-09-15] MEDS ORDERED: LACT1CAP57 PO (15:45)
[2023-09-15] MEDS ORDERED: ROCPM1 IV (15:45)
[2023-09-15] MEDS ORDERED: VANC25SO PO (15:45)
[2023-09-15 16:49] VITALS: BP_SYST 100; PULSE 17; RESP 18; TEMP 97.7; O2SAT 98
[2023-09-15] MEDS ORDERED: VANCOMYCIN HCL ORAL SOLUTION 125 MG/5 ML, 150 ML PO SCH ×2 (17:00)
[2023-09-15 18:36] VITALS: BP_SYST 96; PULSE 55; RESP 17; TEMP 97.8; O2SAT 98
[2023-09-15 20:03] VITALS: BP_SYST 109; PULSE 86; RESP 18; TEMP 98.1; O2SAT 100
[2023-09-15] MEDS ORDERED: LACTOBACILLUS RHAMNOSUS GG 1 CAP CAPSULE PO SCH (21:00)
== END 2023-09-15 20:00 | DRG 720 ==
LOC: SED 19:30 → STU 22:41
PROVIDERS: ADMIT Internal Medicine; ATTEND Internal Medicine
PROC: 05HY33Z Insertion of Infusion Device into Upper Vein, Percutaneous Approach (ICD-10-PCS; principal; 2023-09-10)
DX: A41.9 Sepsis, unspecified organism (principal); G93.41 Metabolic encephalopathy; E43 Unspecified severe protein-calorie malnutrition; D68.59 Other primary thrombophilia; K65.2 Spontaneous bacterial peritonitis; K76.82 Hepatic encephalopathy; A04.72 Enterocolitis due to Clostridium difficile, not specified as recurrent; D68.9 Coagulation defect, unspecified; E87.1 Hypo-osmolality and hyponatremia; J18.9 Pneumonia, unspecified organism; K70.30 Alcoholic cirrhosis of liver without ascites; N39.0 Urinary tract infection, site not specified; E87.6 Hypokalemia; R56.9 Unspecified convulsions; Z88.0 Allergy status to penicillin; Z79.899 Other long term (current) drug therapy; Z68.34 Body mass index [BMI] 34.0-34.9, adult
CPT/HCPCS: 36415; 71045; 76705; 80053; 81000; 82105; 82140; 82962; 83037; 83605; 83735; 83880; 84484; 85025; 85610-TC; 85730-TC; 87040; 87045-TC; 87046; 87081; 87086; 87230-TC; 89055; 93005; 96365; 96375; 97110-GP; 97116-GP; 97530-GP; 99285; G0378; J0696; J2405; J3430; J7060